=== PATIENT | male | born 1995 | race Caucasian/White ===

== ENCOUNTER 2016-09-04 07:23 | Emergency (ER) | payer OTHER ==
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
== END 2016-09-04 08:16 | disposition home or self-care (01) ==
LOC: SED 07:23
DX: S20.211A Contusion of right front wall of thorax, initial encounter (principal); V49.40XA Driver injured in collision with unspecified motor vehicles in traffic accident, initial encounter
CPT/HCPCS: 71020; 99283